=== PATIENT | male | born 2000 | race Asian ===

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

== ENCOUNTER 2022-08-14 03:17 | Emergency (ER) | payer BC ==
[~2022-08-14] VITALS: Ht 175.3 cm; Wt 64.0 kg
[~2022-08-14 03:17] MED LIST: CIPR250T4 PO
[2022-08-14 03:23] VITALS: BP_SYST 155
--- NOTE | 2022-08-14 03:26 | NUR ---
PT HERE C/O COUGH X1 WK, WORST TONIGHT. PT DENIES FEVER. PT AAOX4, NO SOB NOTED AND ANAD AT THIS TIME. PENDING MD FUENTES
--- NOTE | 2022-08-14 03:50 | NUR ---
Patient presents from home with c/o excessive coughing x1 day. Patient reports cold symptoms x6days. Patient denies N/V/D, SOB, chest pain, weakness, or pain at this time. Patient A/Ox4, VSS, ambulatory, resp even and unlabored. Patient resting in bed with safety precautions in place and connected to monitor at this time. Patient's mother at bedside. Nad noted at this time. ER MD Zuñiga made aware.
--- NOTE | 2022-08-14 03:58 | NUR ---
ER MD Zuñiga at bedside examining patient.
--- NOTE | 2022-08-14 04:05 | NUR ---
RT at bedside for breathing treatment.
[2022-08-14] MEDS ORDERED: ALBUTEROL SULFATE 0.083% 2.5 MG/3 ML VIAL.NEB INH ONE (04:15)
[2022-08-14] MEDS ORDERED: ACETAMINOPHEN/CODEINE 300 MG-30 MG TABLET PO ONE (04:15)
[2022-08-14] MEDS ORDERED: DEXAMETHASONE SOD PHOSPHATE 10 MG/ML VIAL IM ONE (04:15)
[2022-08-14] MEDS ORDERED: IBUPROFEN 600 MG TABLET PO ONE (05:00)
--- NOTE | 2022-08-14 05:00 | NUR ---
Patient resting comfortably in bed with safety precautions in place. Nad noted at this time
[2022-08-14] MEDS ORDERED: ALBMDI INH (05:30)
[2022-08-14] MEDS ORDERED: PROM5SYR PO (05:30)
[2022-08-14] MEDS ORDERED: PRED20TA PO (05:30)
[2022-08-14 06:15] VITALS: BP_SYST 145
--- NOTE | 2022-08-14 06:15 | NUR ---
Patient given written and verbal discharge instructions and verbalizes understanding. ER MD discussed with patient the results and treatment provided. Patient in stable condition. ID arm band removed. Rx of Albuterol, Predisone, Promethazine with codeine given. Patient educated on pain management and to follow up with PMD. Pain Scale 2/10. Opportunity for questions provided and answered. Medication side effect fact sheet provided. Patient A/Ox4, VSS, ambulatory, resp even and unlabored. Patient accompanied by mother and in stable condition upon discharge.
--- NOTE | 2022-08-14 08:00 | NUR ---
ATTEMPTED TO CONTACT PT AND FAMILY, NO ANSWER UNABLE TO LEAVE VOICEMAIL, TO NOTIFY OF POSITIVE FLU RESULTS.
== END 2022-08-14 06:15 | disposition home or self-care (01) ==
LOC: SED 03:17
DX: J20.8 Acute bronchitis due to other specified organisms (principal); R05.9 Cough, unspecified; R06.02 Shortness of breath; M54.50 Low back pain, unspecified; Z79.899 Other long term (current) drug therapy; Z20.822 Contact with and (suspected) exposure to COVID-19
CPT/HCPCS: 36415; 71045; 94640; 94760; 99284; 96372; 87804 ×2; 87426; J1100; J7613

== ENCOUNTER 2023-02-05 21:21 | Emergency (ER) | payer BC ==
[~2023-02-05] VITALS: Ht 175.3 cm; Wt 63.5 kg
[~2023-02-05 21:21] MED LIST changes: +ALBMDI INH; +PRED20TA PO; +PROM5SYR PO
[2023-02-05 21:31] VITALS: BP_SYST 150
--- NOTE | 2023-02-05 21:38 | NUR ---
Patient triaged and placed in waiting room. VSS and patient appears in no acute distress at this time. Accompanied by MOTHER, awaiting available bed, and MD notified of need for MSE.
--- NOTE | 2023-02-05 22:40 | NUR ---
Dr. Barker with patient in triage for MSE.
[2023-02-05 22:57] VITALS: BP_SYST 150
--- NOTE | 2023-02-05 22:57 | NUR ---
Patient given written and verbal discharge instructions and verbalizes understanding. ER Dr. Barker discussed with patient the results and treatment provided. Patient in stable condition. ID arm band removed. Patient educated on pain management and to follow up with PMD. Pain Scale 3. Opportunity for questions provided and answered. Medication side effect fact sheet provided.
== END 2023-02-05 22:57 | disposition home or self-care (01) ==
LOC: SED 21:21
DX: S63.622A Sprain of interphalangeal joint of left thumb, initial encounter (principal); Z79.899 Other long term (current) drug therapy; W23.0XXA Caught, crushed, jammed, or pinched between moving objects, initial encounter; Y93.89 Activity, other specified; Y92.89 Other specified places as the place of occurrence of the external cause; Y99.8 Other external cause status
CPT/HCPCS: 99283